=== PATIENT | male | born 1950 | race Two or more races ===

== ENCOUNTER → 2022-01-22 | Day surgery (SDC) | payer OTHER ==
[~2022-01-22] VITALS: Ht 175.3 cm; Wt 85.7 kg
[~2022-01-22] MED LIST: ZESTRIL2.5 MG PO
== END | disposition home or self-care (01) ==
LOC: ADM 01-19 07:00 → CIR.AMB 06:20
PROVIDERS: ATTEND Specialist
DX: K40.90 Unilateral inguinal hernia, without obstruction or gangrene, not specified as recurrent (principal); Z20.822 Contact with and (suspected) exposure to COVID-19; I10 Essential (primary) hypertension; Z53.09 Procedure and treatment not carried out because of other contraindication; Z96.0 Presence of urogenital implants

== ENCOUNTER 2022-04-28 06:00 | Day surgery (SDC) | payer OTHER | END 2022-04-28 15:15 | disposition home or self-care (01) | LOC: CIR.AMB 06:00 | PROVIDERS: ATTEND Specialist | DX: K40.90 Unilateral inguinal hernia, without obstruction or gangrene, not specified as recurrent (principal); I10 Essential (primary) hypertension; Z20.822 Contact with and (suspected) exposure to COVID-19 | CPT/HCPCS: 49505; C1781 ==

== ENCOUNTER 2022-11-29 14:30 | Inpatient (IN) | payer OTHER ==
[~2022-11-29] VITALS: Ht 170.2 cm; Wt 76.2 kg
[2022-11-30] MEDS ORDERED: PANTOPRAZOLE SO40 MG (11:18)
[2022-11-30] MEDS ORDERED: ATORVASTATIN CA20 MG (11:18)
[2022-11-30] MEDS ORDERED: AMLODIPINE BESY10 MG (11:18)
[2022-11-30] MEDS ORDERED: LOSARTAN-HCTZ1 EAC1 (11:18)
== END 2022-12-01 16:53 | disposition home or self-care (01) | DRG 308 ==
LOC: ER 14:30 → SEC-K 20:05 → MEDI 20:05 → SEC-K 22:33 → MEDJ 11-30 15:53
PROVIDERS: General Practice; Internal Medicine Infectious Disease; ADMIT Internal Medicine; ATTEND Internal Medicine
PROC: B24BZZZ Ultrasonography of Heart with Aorta (ICD-10-PCS; 2022-11-29)
PROC: B345ZZZ Ultrasonography of Bilateral Common Carotid Arteries (ICD-10-PCS; 2022-11-29)
PROC: 4A12X4Z Monitoring of Cardiac Electrical Activity, External Approach (ICD-10-PCS; principal; 2022-11-30)
PROC: BW24ZZZ Computerized Tomography (CT Scan) of Chest and Abdomen (ICD-10-PCS; 2022-11-30)
PROC: BW28ZZZ Computerized Tomography (CT Scan) of Head (ICD-10-PCS; 2022-11-30)
DX: I48.0 Paroxysmal atrial fibrillation (principal); U07.1 COVID-19; N17.9 Acute kidney failure, unspecified; I13.0 Hypertensive heart and chronic kidney disease with heart failure and stage 1 through stage 4 chronic kidney disease, or unspecified chronic kidney disease; I50.30 Unspecified diastolic (congestive) heart failure; R55 Syncope and collapse; N18.9 Chronic kidney disease, unspecified